=== PATIENT | female | born 1960 | race Caucasian/White ===

== ENCOUNTER 2017-12-06 13:52 | Emergency (ER) | payer OTHER ==
[~2017-12-06] VITALS: Ht 154.9 cm; Wt 59.9 kg
[2017-12-06] MEDS ORDERED: HYZAAR 100-251 EACH (14:10)
[2017-12-06] MEDS ORDERED: NORVASC5 MG (14:10)
[2017-12-06] MEDS ORDERED: LAMICTAL200 M1 (14:10)
[2017-12-06] MEDS ORDERED: PRAVASTATIN SOD40 MG (14:10)
[2017-12-07] MEDS ORDERED: PROTONIX40 MG PO (15:14)
[2017-12-07] MEDS ORDERED: INTESTINEX680 M1 PO (15:14)
[2017-12-07] MEDS ORDERED: CIPRO500 MG PO (15:14)
[2017-12-07] MEDS ORDERED: LEVSIN/SL0.125 MG PO (15:14)
== END 2017-12-07 16:22 | disposition home or self-care (01) ==
LOC: ER 13:52
DX: K80.20 Calculus of gallbladder without cholecystitis without obstruction (principal); R10.11 Right upper quadrant pain

== ENCOUNTER → 2017-12-24 07:26 | Outpatient (CLI) | payer OTHER ==
[~2017-12-24 07:26] MED LIST: CIPRO500 MG PO; HYZAAR 100-251 EACH; INTESTINEX680 M1 PO; LAMICTAL200 M1; LEVSIN/SL0.125 MG PO; NORVASC5 MG; PRAVASTATIN SOD40 MG; PROTONIX40 MG PO
== END | disposition home or self-care (01) ==
LOC: LAB 07:26
DX: K80.10 Calculus of gallbladder with chronic cholecystitis without obstruction (principal); Z01.810 Encounter for preprocedural cardiovascular examination; Z01.812 Encounter for preprocedural laboratory examination; E03.8 Other specified hypothyroidism; M81.0 Age-related osteoporosis without current pathological fracture; T78.40XA Allergy, unspecified, initial encounter

== ENCOUNTER 2018-01-10 05:47 | Day surgery (SDC) | payer OTHER ==
[~2018-01-10 05:47] MED LIST changes: +AMBIEN10 MG PO; +HYZAAR 100-251 EACH PO; +PROVASTATIN PO
[2018-01-10] MEDS ORDERED: KEFLEX500 MG PO (11:47)
[2018-01-10] MEDS ORDERED: ULTRACET PO (11:47)
== END 2018-01-10 15:10 | disposition home or self-care (01) ==
LOC: CIR.AMB 05:47
DX: K80.10 Calculus of gallbladder with chronic cholecystitis without obstruction (principal)

== ENCOUNTER 2024-03-20 16:37 | Emergency (ER) | payer OTHER ==
[~2024-03-20] VITALS: Ht 157.5 cm; Wt 68.0 kg
[~2024-03-20 16:37] MED LIST changes: +KEFLEX500 MG PO; +ULTRACET PO
[2024-03-20 21:41] LABS: HEMATOCRIT 39.5 % (36.0-45.00); HEMOGLOBIN 13.3 g/dL (12.0-15.00); MEAN CORPUSCULAR HEMOGLOBIN 29.7 pg (27.00-32.0); MEAN CORPUSCULAR HGB CONC 33.7 g/dl (32.0-36.0); PLATELET COUNT 152 K/uL (150-450); RED BLOOD COUNT 4.49 M/uL (4.00-6.00); RED CELL DISTRIBUTION WIDTH 13.8 % (11.5-14.5)
[2024-03-20] MEDS ORDERED: METROnidazole 500 MG TABLET PO STA (21:56)
[2024-03-20] MEDS ORDERED: CIPROFLOXACIN IN 5 % DEXTROSE 400 MG/200 ML PIGGYBAG IV STA (21:56)
[2024-03-20 22:03] LABS: URINE APPEARANCE Cloudy; URINE BILIRRUBIN Negative (NEGATIVE); URINE BLOOD Negative; URINE COLOR Yellow; URINE GLUCOSE Negative (NEGATIVE); URINE KETONE Negative (NEGATIVE); URINE LEUKOCYTE Negative; URINE NITRATE Negative; URINE PROTEIN Trace (NEGATIVE); URINE UROBILINOGEN 0.2 E.U./dl
[2024-03-20 22:07] LABS: URINE BACTERIA 1505.5 uL (0.0-1933); URINE EPITHELIAL CELLS 42.6 uL (0.0-38.8); URINE RBC 6.8 uL (0.0-20.8); URINE WBC 18.8 uL (0.0-23.2)
[2024-03-20 22:10] LABS: URINE CAST 0.15 uL (0.0-1.40)
[2024-03-20 23:44] LABS: CALCIUM 9.5 mg/dL (8.5-10.1); CREATININE SERUM 0.64 mg/dL (0.55-1.02); GFR 93.13; POTASSIUM 4.95 mEq/L (3.5-5.1)
== END 2024-03-21 00:35 | disposition home or self-care (01) ==
LOC: ER 16:39
PROVIDERS: General Practice
DX: K57.92 Diverticulitis of intestine, part unspecified, without perforation or abscess without bleeding (principal); R10.9 Unspecified abdominal pain
CPT/HCPCS: 36415; 74177; 96365; 99284; J0744; Q9965